=== PATIENT | male | born 1975 | race Caucasian/White ===

== ENCOUNTER 2017-04-18 12:30 | Emergency (ER) | payer BC ==
[2017-04-18 12:43] VITALS: BP 115/68
--- NOTE | 2017-04-18 12:46 | UC ---
Skin Complaint HPI - HPI Summary HPI Summary: Pt presents with c/o finger stick injury to left thumb. 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 - History of Current Complaint Time Seen by Provider: 04/18/17 12:39 Stated Complaint: NEEDLESTICK Hx Obtained From: Patient Onset/Duration: Sudden Onset Skin Exposure Onset/Duration: Hours Ago Timing: Constant Onset Severity: Mild Current Severity: Mild Location: Discrete - left dorsal aspect of thumb just below base of finger name , medial Aggravating: Nothing Associated Signs & Symptoms: Positive: Negative Related History: Other: - occured during healthcare procedure. Pt who was being treated denies any prior PMH significant for any blood borne diseases - Allergy/Home Medications Allergies/Adverse Reactions: Allergies Allergy/AdvReac Type Severity Reaction Status Date / Time No Known Allergies Allergy Verified 04/18/17 12:43 Home Medications: Home Medications NK [No Home Medications Reported] 04/18/17 [History Confirmed 04/18/17] Review of Systems Constitutional: Negative Skin: Other - pin prick, superficial jerica left thumb Eyes: Negative ENT: Negative Respiratory: Negative Cardiovascular: Negative Gastrointestinal: Negative Genitourinary: Negative Motor: Negative Neurovascular: Negative Musculoskeletal: Negative Neurological: Negative Psychological: Negative All Other Systems Reviewed And Are Negative: Yes PMH/Surg Hx/FS Hx/Imm Hx Previously Healthy: Yes - Family History Known Family History: Positive: Other - colon cancer - Social History Occupation: Employed Full-time Lives: With Family Alcohol Use: None Substance Use Type: None Smoking Status (MU): Never Smoked Tobacco Have You Smoked in the Last Year: No Physical Exam Triage Information Reviewed: Yes Appearance: Well-Appearing Vital Signs Reviewed: Yes Eye Exam: Normal Dental Exam: Normal Respiratory Exam: Normal Cardiovascular Exam: Normal Musculoskeletal Exam: Normal Neurological Exam: Normal Psychological Exam: Normal Skin Exam: Other - pin prick size erythematous area left thumb medial dorsal aspect base of thumb nail. Course/Dx - Differential Diagnoses - Skin Complaint Differential Diagnoses: Other - needle stick potential exposure to blood borne disease - Diagnoses Provider Diagnoses: needle stick potential exposure to blood borne disease Discharge - Discharge Plan Condition: Stable Disposition: HOME Patient Education Materials: Needle Stick Injuries (ED) Referrals: [facility] [place] [facility] [Outside] Additional Instructions: Please follow up with your PCP or return to clinic as needed.
== END 2017-04-18 12:58 | disposition home or self-care (01) ==
LOC: UCCORT 12:30
DX: S61.032A Puncture wound without foreign body of left thumb without damage to nail, initial encounter (principal); W46.1XXA Contact with contaminated hypodermic needle, initial encounter; Y93.89 Activity, other specified; Y92.532 Urgent care center as the place of occurrence of the external cause; Y99.0 Civilian activity done for income or pay; Z11.4 Encounter for screening for human immunodeficiency virus [HIV]
CPT/HCPCS: 36415; 86703; 86803; 87340; 99201; G0463